=== PATIENT | male | born 1965 | race Caucasian/White ===

== ENCOUNTER 2017-11-01 17:42 | Emergency (ER) | payer OTHER ==
[~2017-11-01] VITALS: Ht 185.4 cm; Wt 115.3 kg
[~2017-11-01 17:42] MED LIST: BENADRYL25 MG PO; KEFLEX500 MG PO; LISINOPRIL40 MG PO; PANTOPRAZOLE SO40 MG PO
[2017-11-01 19:04] LABS: HEMATOCRIT 49.5 % (38.0-50.0); HEMOGLOBIN 17.4 G/DL (12.5-16.6); MCH 29.6 PG (29.0-34.0); MCHC 35.2 G/DL (30.0-36.0); MCV 84.2 FL (86-99); PLATELET COUNT 176 K/uL (156-360); RBC DIS.WIDTH-CV 12.7 % (11.8-14.6); RBC DIS.WIDTH-SD 38.7 % (39-53); RED BLOOD COUNT 5.88 M/uL (4.00-5.50); WHITE BLOOD COUNT 9.4 K/uL (4.1-10.2)
[2017-11-01 19:13] LABS: CHLORIDE 101 mEq/L (99-109); POTASSIUM 3.5 mEq/L (3.7-5.4); SODIUM 136 mEq/L (136-147)
[2017-11-01 19:14] LABS: GLUCOSE 149 mg/dL (70-99)
[2017-11-01 19:18] LABS: CREATININE 0.9 mg/dL (0.6-1.3); GFR ESTIMATE (CALCULATED) > 59 mL/min/ (58.99-99999)
[2017-11-01 19:19] LABS: UREA NITROGEN (BUN) 13 mg/dL (9-23)
[2017-11-01 20:04] LABS: C-REACTIVE PROTEIN 7.2 MG/L (0-10)
[2017-11-01 20:12] LABS: ERTH.SED.RATE 15 MM/HR (0-15)
[2017-11-01 21:17] VITALS: BP 151/89
== END 2017-11-01 21:18 | disposition home or self-care (01) ==
LOC: EME 17:42
DX: R51 Headache (principal); K21.9 Gastro-esophageal reflux disease without esophagitis; F17.200 Nicotine dependence, unspecified, uncomplicated; Z88.5 Allergy status to narcotic agent; Z88.6 Allergy status to analgesic agent
CPT/HCPCS: 70450; 80048; 85027; 85651; 86140; 93005; 99281; 99284

== ENCOUNTER 2018-03-29 12:44 | Inpatient (IN) | payer OTHER ==
[~2018-03-29] VITALS: Ht 185.4 cm; Wt 112.0 kg
[2018-03-29 14:19] LABS: BASOPHIL (%) 0.5 % (0-1); BASOPHIL COUNT 0.1 K/uL (0-0.1); EOSINOPHIL (%) 0.1 % (0-5); HEMATOCRIT 38.8 % (38.0-50.0); HEMOGLOBIN 14.1 G/DL (12.5-16.6); IMMATURE GRANULOCYTE (%) 2.2 % (0.0-0.7); LYMPHOCYTE (%) 5.1 % (15-42); LYMPHOCYTE COUNT 0.8 K/uL (1.0-2.8); MCH 29.6 PG (29.0-34.0); MCHC 36.3 G/DL (30.0-36.0); MCV 81.3 FL (86-99); MONOCYTE (%) 5.4 % (3-12); MONOCYTE COUNT 0.8 K/uL (0-0.8); NEUTROPHIL (%) 86.7 % (45-76); NEUTROPHIL COUNT 13.4 K/uL (1.8-6.4); PLATELET COUNT 152 K/uL (156-360); RBC DIS.WIDTH-CV 12.9 % (11.8-14.6); RBC DIS.WIDTH-SD 38.2 % (39-53); RED BLOOD COUNT 4.77 M/uL (4.00-5.50); WHITE BLOOD COUNT 15.4 K/uL (4.1-10.2)
[2018-03-29 14:24] LABS: INTER. NORMALIZED RATIO 1.2
[2018-03-29 14:30] LABS: CHLORIDE 89 mEq/L (99-109); SODIUM 125 mEq/L (136-147)
[2018-03-29 14:31] LABS: GLUCOSE 167 mg/dL (70-99)
[2018-03-29 14:35] LABS: CREATININE 1.2 mg/dL (0.6-1.3); GFR ESTIMATE (CALCULATED) > 59 mL/min/ (58.99-99999)
[2018-03-29 14:36] LABS: UREA NITROGEN (BUN) 26 mg/dL (9-23)
[2018-03-29] MEDS ORDERED: ZOFRAN4 MG PO (14:52)
[2018-03-29] MEDS ORDERED: OMEPRAZOLE20 MG PO (14:52)
[2018-03-29] MEDS ORDERED: DIOVAN HCT 11 TABLET PO (14:53)
[2018-03-29] MEDS ORDERED: TYLENOL EXTRA500 MG PO (14:53)
[2018-03-29 16:18] LABS: ALBUMIN 3.1 g/dL (3.2-4.8)
[2018-03-29 16:21] LABS: TOTAL PROTEIN 6.1 g/dL (6.4-8.3)
[2018-03-29 16:23] LABS: TOTAL BILIRUBIN 1.6 mg/dL (0.0-1.0)
[2018-03-29 16:24] LABS: ALKALINE PHOSPHATASE 107 IU/L (3-129)
[2018-03-29 16:26] LABS: AST (GOT) 74 IU/L (2-34)
[2018-03-29 16:27] LABS: ALT (GPT) 55 IU/L (3-49); DIRECT BILIRUBIN 1.2 mg/dL (0.0-0.3)
[2018-03-29 16:39] LABS: MAGNESIUM 1.8 mg/dL (1.3-2.7)
[2018-03-29 18:13] VITALS: BP 111/63
[2018-03-29 19:00] VITALS: BP 106/66
[2018-03-29 21:17] LABS: APPEARANCE CLOUDY ((CLEAR)); BILIRUBIN NEGATIVE; BLOOD SMALL; COLOR AMBER ((YELLOW)); GLUCOSE (STRIP) 50; KETONES NEGATIVE; LEUKOCYTES NEGATIVE; NITRITE NEGATIVE; PROTEIN (STRIP) 100; SPECIFIC GRAVITY 1.015 (1.000-1.030)
[2018-03-29 21:23] LABS: BACTERIA RARE /HPF; EPITHELIAL CELLS RARE /HPF; MUCUS TRACE /LPF; RED BLOOD CELLS 0-5 /HPF (0-5)
[2018-03-29 23:00] VITALS: BP 109/70
[2018-03-30 03:30] VITALS: BP 118/70
[2018-03-30 05:14] LABS: HEMATOCRIT 37.8 % (38.0-50.0); HEMOGLOBIN 13.2 G/DL (12.5-16.6); MCH 28.9 PG (29.0-34.0); MCHC 34.9 G/DL (30.0-36.0); MCV 82.9 FL (86-99); PLATELET COUNT 139 K/uL (156-360); RBC DIS.WIDTH-CV 13.2 % (11.8-14.6); RBC DIS.WIDTH-SD 40.3 % (39-53); RED BLOOD COUNT 4.56 M/uL (4.00-5.50); WHITE BLOOD COUNT 12.5 K/uL (4.1-10.2)
[2018-03-30 05:46] LABS: CHLORIDE 94 MEQ/L (99-109); CREATININE 1.4 MG/DL (0.6-1.3); GFR ESTIMATE (CALCULATED) 57 mL/min/ (58.99-99999); GLUCOSE 145 mg/dL (70-99); SODIUM 127 MEQ/L (136-147); UREA NITROGEN (BUN) 30 mg/dL (9-23)
[2018-03-30 05:47] LABS: POTASSIUM 3.7 MEQ/L (3.7-5.4)
[2018-03-30 07:11] VITALS: BP 123/65
[2018-03-30 10:55] LABS: HEMOGLOBIN A1c (GLYCOHEMOGLOB) 8.7 % (Below 5.7)
[2018-03-30 12:39] VITALS: BP 94/54
[2018-03-30 15:48] VITALS: BP 122/68
[2018-03-30 17:23] VITALS: BP 120/67
[2018-03-30 23:43] VITALS: BP 117/68
[2018-03-31 08:00] VITALS: BP 123/73
[2018-03-31 08:50] LABS: HEMATOCRIT 38.4 % (38.0-50.0); HEMOGLOBIN 13.4 G/DL (12.5-16.6); MCH 29.4 PG (29.0-34.0); MCHC 34.9 G/DL (30.0-36.0); MCV 84.2 FL (86-99); RBC DIS.WIDTH-CV 13.7 % (11.8-14.6); RBC DIS.WIDTH-SD 42.4 % (39-53); RED BLOOD COUNT 4.56 M/uL (4.00-5.50); WHITE BLOOD COUNT 13.7 K/uL (4.1-10.2)
[2018-03-31 09:21] LABS: CHLORIDE 98 MEQ/L (99-109); CREATININE 1.1 MG/DL (0.6-1.3); GFR ESTIMATE (CALCULATED) > 59 mL/min/ (58.99-99999); GLUCOSE 144 mg/dL (70-99); SODIUM 131 MEQ/L (136-147); UREA NITROGEN (BUN) 22 mg/dL (9-23)
[2018-03-31 09:43] LABS: PLAT.SUFFICIENCY ADEQUATE
[2018-03-31 09:44] LABS: PLATELET COUNT 209 K/uL (156-360)
[2018-03-31 16:01] VITALS: BP 124/76
[2018-04-01] VITALS: BP 114/57
[2018-04-01 05:54] LABS: HEMATOCRIT 38.7 % (38.0-50.0); HEMOGLOBIN 13.3 G/DL (12.5-16.6); MCH 28.9 PG (29.0-34.0); MCHC 34.4 G/DL (30.0-36.0); MCV 84.1 FL (86-99); RBC DIS.WIDTH-CV 13.7 % (11.8-14.6); RBC DIS.WIDTH-SD 42.3 % (39-53); WHITE BLOOD COUNT 14.2 K/uL (4.1-10.2)
[2018-04-01 06:34] LABS: CHLORIDE 98 MEQ/L (99-109); CREATININE 1.1 MG/DL (0.6-1.3); GFR ESTIMATE (CALCULATED) > 59 mL/min/ (58.99-99999); GLUCOSE 135 mg/dL (70-99); SODIUM 135 MEQ/L (136-147); UREA NITROGEN (BUN) 20 mg/dL (9-23)
[2018-04-01 06:47] LABS: PLATELET COUNT 276 K/uL (156-360)
[2018-04-01 07:37] VITALS: BP 131/71
[2018-04-01] MEDS ORDERED: VALSARTAN160 MG PO (10:16)
[2018-04-01] MEDS ORDERED: METFORMIN HCL500 MG PO (10:16)
[2018-04-01] MEDS ORDERED: MUCINEX600 MG PO (10:16)
[2018-04-01] MEDS ORDERED: LEVAQUIN750 MG PO (10:18)
== END 2018-04-01 12:15 | disposition home or self-care (01) | DRG 871 ==
LOC: EME 12:44 → EDOF 14:55 → 4EAST 14:55 → ENRESERV 15:38 → 4EAST 17:36 → ENRESERV 03-30 15:25 → 5SOUTH 03-30 16:38
PROVIDERS: Emergency Medicine; Internal Medicine
DX: A41.89 Other specified sepsis (principal); A48.1 Legionnaires' disease; E87.1 Hypo-osmolality and hyponatremia; E87.6 Hypokalemia; R09.02 Hypoxemia; I10 Essential (primary) hypertension; E11.9 Type 2 diabetes mellitus without complications; K21.9 Gastro-esophageal reflux disease without esophagitis; F17.210 Nicotine dependence, cigarettes, uncomplicated; E66.01 Morbid (severe) obesity due to excess calories; Z68.32 Body mass index [BMI] 32.0-32.9, adult
CPT/HCPCS: 71045; 71046; 71250; 80048; 80076; 81003; 82948; 83036; 83605; 83735; 85025; 85027; 85610; 87040; 87449; 93005; 94640; 94799; 99281; 99285; J0456; J0696; J1644; J1815; J2543; J3370; J3480; J7030